=== PATIENT | male | born 1950 | race Caucasian/White ===

== ENCOUNTER → 2019-09-28 | Outpatient (CLI) | payer MEDICARE ==
--- NOTE | 2019-09-28 11:26 | RAD ---
Complete abdominal ultrasound 09/28/2019 10:00 AM Clinical History: Ascites, abdominal distention, right upper quadrant pain Technique: Ultrasound examination of the abdomen was performed, and multiple static images were submitted for review. Comparison: None available Findings: The pancreas is poorly visualized. Aorta and IVC are poorly visualized. The liver is poorly visualized. Visualized portions of the liver grossly unremarkable. Apparent increase in hepatic echogenicity is seen which may reflect hepatic steatosis. Liver is grossly normal in size measuring approximately 15 cm longitudinally the gallbladder is surgically absent. Common bile duct is nonvisualized. The right kidney is poorly visualized. No gross abnormality is seen. Spleen is normal in size. The left kidney measures approximately 11.4 x 6.6 x 5.5 cm. There is a simple appearing cyst in the superior left kidney measuring 6 cm in diameter. Left kidney is otherwise unremarkable in appearance. Impression: 1. Limited ultrasound without evidence of acute abnormality 2. 6 cm left renal cyst 3. Probable hepatic steatosis Electronically signed by: Nitin Moore MD (09/28/2019 11:23 AM) [id number]
== END | disposition home or self-care (01) ==
LOC: US 09:54
PROVIDERS: ATTEND Family Medicine
DX: N28.1 Cyst of kidney, acquired (principal); R18.8 Other ascites; R14.0 Abdominal distension (gaseous); R10.11 Right upper quadrant pain
CPT/HCPCS: 76700

== ENCOUNTER → 2019-10-21 | Day surgery (SDC) | payer MEDICARE ==
[~2019-10-21] MED LIST: ACETAMINOPHEN 325 MG TABLET PO PRN; ALBUTEROL SULFATE 2.5 MG/3 ML NEBU. NEB PRN; ATORVASTATIN CA80 MG PO; ATROPINE 0.5 MG/5 ML DISP.SYRIN. IV PRN; DILT180C29 PO; FENO54TA PO; FISH1CAP PO; FLEC100T PO; IV RINGERS SOLUTION,LACTATED 1,000 ML IV SCH; LISI-334 PO; PHENOL ORAL SPRAY 177ML BOTTLE. MM PRN; PROPOFOL 20 ML IV ONE; RIVA20TA2 PO; diphenhydrAMINE 50 MG/ML VIAL IV PRN
[2019-10-21 10:07] VITALS: BP 90/59
== END | disposition home or self-care (01) ==
LOC: SURG 08:52
PROVIDERS: ATTEND Surgery
DX: Z12.11 Encounter for screening for malignant neoplasm of colon (principal); K63.89 Other specified diseases of intestine; I10 Essential (primary) hypertension; I48.91 Unspecified atrial fibrillation; Z90.49 Acquired absence of other specified parts of digestive tract; Z98.890 Other specified postprocedural states; Z72.89 Other problems related to lifestyle; Z86.010 Personal history of colon polyps
CPT/HCPCS: G0105; J2704; J7120; 45378